=== PATIENT | female | born 1960 | race Caucasian/White ===

== ENCOUNTER 2018-07-06 21:42 | Emergency (ER) | payer OTHER ==
[2018-07-06 22:19] VITALS: BP 139/68
--- NOTE | 2018-07-06 22:29 | RADIOLOGY REPORT (SQ) ---
3 VIEWS OF THE LEFT FOOT AND ANKLE HISTORY: Foot pain. COMPARISON: None. FINDINGS/IMPRESSION: Nondisplaced fracture of the fifth metatarsal base. Mild surrounding soft tissue swelling is seen. No dislocation. Generalized osteopenia is present.
[2018-07-06] MEDS ORDERED: IBUPROFEN 600 MG TABLET PO ONE (23:33)
--- NOTE | 2018-07-06 23:54 | ER Document Report ---
HPI - HPI Pain Level: 2 Notes: Patient is a 57-year-old female who presents with chief complaint of left foot pain after she tripped just prior to arrival. Patient reports the pain is located over the dorsal surface of her foot medially. - CONSTITUTIONAL Constitutional: DENIES: Fever, Chills Past Medical History - General Information source: Patient - Social History Smoking Status: Never Smoker Frequency of alcohol use: None Drug Abuse: None Family History: Reviewed & Not Pertinent Patient has suicidal ideation: No Patient has homicidal ideation: No - Past Medical History Cardiac Medical History: Denies: Hx Coronary Artery Disease, Hx Heart Attack, Hx Hypertension Pulmonary Medical History: Reports: Hx COPD Denies: Hx Asthma, Hx Bronchitis, Hx Pneumonia Neurological Medical History: Denies: Hx Cerebrovascular Accident, Hx Seizures Renal/ Medical History: Denies: Hx Peritoneal Dialysis GI Medical History: Reports: Hx Gastroesophageal Reflux Disease Musculoskeletal Medical History: Denies Hx Arthritis Past Surgical History: Reports: Hx Cholecystectomy. Denies: Hx Hysterectomy - Immunizations Hx Diphtheria, Pertussis, Tetanus Vaccination: Yes Vertical Provider Document - CONSTITUTIONAL Notes: PHYSICAL EXAMINATION: GENERAL: Well-appearing, well-nourished and in no acute distress. HEAD: Atraumatic, normocephalic. EYES: Pupils equal round extraocular movements intact, conjunctiva are normal. ENT: Nares patent NECK: Normal range of motion LUNGS: No respiratory distress Musculoskeletal: Normal range of motion, tenderness to palpation over fifth metatarsal on the left foot cap refill less than 3 seconds, normal motor and sensation distal to injury. Mild swelling and ecchymosis noted. NEUROLOGICAL: Normal speech, normal gait. PSYCH: Normal mood, normal affect. SKIN: Warm, Dry, normal turgor, no rashes or lesions noted. - INFECTION CONTROL TRAVEL OUTSIDE OF THE [place] IN LAST 30 DAYS: No Course - Re-evaluation Re-evalutation: Patient with nondisplaced fifth metatarsal fracture of the left foot. Patient will be placed in a splint, given crutches, directions on icing and elevating. Patient to take ibuprofen for pain. Will follow up with orthopedics. - Vital Signs Vital signs: Temp Pulse Resp BP Pulse Ox 98.7 F 74 22 H 139/68 H 94 07/06/18 22:15 07/06/18 22:15 07/06/18 22:15 07/06/18 22:15 07/06/18 22:15 Procedures - Immobilization Left foot Pre-Proc Neuro Vasc Exam: Normal Immobilizer type: Crutches, Posterior ankle Performed by: PCT Post-Proc Neuro Vasc Exam: Normal Alignment checked and good: Yes Discharge - Discharge Clinical Impression: Metatarsal bone fracture Qualifiers: Encounter type: initial encounter Metatarsal bone: fifth Fracture type: closed Fracture alignment: nondisplaced Laterality: left Qualified Code(s): S92.355A - Nondisplaced fracture of fifth metatarsal bone, left foot, initial encounter for closed fracture Condition: Stable Disposition: HOME, SELF-CARE Additional Instructions: Fracture You have a fracture. The typical broken bone requires only protection and sufficient time for healing. "Setting" is necessary only if the bones are crooked or out of position. The physician will re-assess you periodically to make certain that the bone heals without complications. It's important that you follow the instructions given you. The initial treatment is immobilization, elevation of the injury, and cold packs. Not all fractures require a cast. Depending on the location and type of fracture, immobilization may consist of a splint, cast, sling, bulky dressing , or simply rest. The length of time required for healing depends on the location and type of fracture, and on the age of the patient. The treatment plan the physician has outlined for you is customized to your fracture and health condition. Call the doctor or return at once if pain becomes severe, or if severe swelling or numbness develop. Ice & Elevation Apply ice packs frequently against the painful area. Many different schedules are recommended, such as "20 minutes on, 20 minutes off" or "one hour ice, two hours rest." If you need to work, you may need to go longer between ice treatments. You should plan to have the area ice packed AT LEAST one- fourth of the time. The ice should be applied over the wrap, tape, or splint, or over a layer of cloth -- not directly against the skin. Some ice bags have a built-in cloth and can be put directly on the skin. Your injured part should be elevated as much as possible over the next 48 hours. Try to keep the injury above the level of the heart. Avoid use of the injured area. Elevation and rest will decrease the swelling. Ibuprofen Ibuprofen is an excellent, safe drug for pain control. In addition, it has potent antiinflammatory effects which are beneficial, especially in the treatment of injuries, arthritis, or tendonitis. It's best to take ibuprofen with food. Persons with ulcer disease or allergy to aspirin should notify their physician of this before taking ibuprofen. Take the medication exactly as prescribed. Don't take additional doses unless instructed to do so by your doctor. If you develop wheezing, shortness of breath, hives, faintness, stomach pain, vomiting, or dark black stools, return for re-evaluation at once. Please keep the splint in place until seen by orthopedics. Use the crutches to aid in mobility. Take ibuprofen 600 mg every 6 hours for pain. Ice and elevate the extremity as outlined above. Referrals: KATHY MEDELLIN MD [ACTIVE STAFF] - Follow up as needed
== END 2018-07-07 00:31 | disposition home or self-care (01) ==
LOC: ER 21:42
DX: S92.355A Nondisplaced fracture of fifth metatarsal bone, left foot, initial encounter for closed fracture (principal); W19.XXXA Unspecified fall, initial encounter; M79.672 Pain in left foot; J44.9 Chronic obstructive pulmonary disease, unspecified
CPT/HCPCS: 99283

== ENCOUNTER 2018-09-22 22:13 | Emergency (ER) | payer OTHER ==
[2018-09-23] MEDS ORDERED: IBUPROFEN 600 MG TABLET PO ONE (00:16)
[2018-09-23] MEDS ORDERED: OXYCODONE-ACETAMINOPHEN 5-325 MG TABLET PO ONE (00:16)
--- NOTE | 2018-09-23 00:18 | ER Document Report ---
ED General - General Chief Complaint: FALL Stated Complaint: FALL/LEG PAIN Time Seen by Provider: 09/23/18 00:12 Notes: 57-year-old female with no medical problems presents to the emergency department after a mechanical fall that occurred at work. She said she was turning and her knee caught a pole which threw her off balance and caused her to land on her left side. She is currently complaining of left hip femoral knee and ankle pain she denies hitting her head she denies loss of consciousness. She denies chest pain or palpitations. She endorses swelling and pain on the left knee. TRAVEL OUTSIDE OF THE [place] IN LAST 30 DAYS: No - Related Data Allergies/Adverse Reactions: Penicillins Adverse Reaction (Intermediate, Verified 07/06/18 21:46) mouth breaks out Past Medical History - General Information source: Patient - Social History Smoking Status: Current Every Day Smoker Family History: Reviewed & Not Pertinent - Past Medical History Cardiac Medical History: Denies: Hx Coronary Artery Disease, Hx Heart Attack, Hx Hypertension Pulmonary Medical History: Reports: Hx COPD Denies: Hx Asthma, Hx Bronchitis, Hx Pneumonia Neurological Medical History: Denies: Hx Cerebrovascular Accident, Hx Seizures Renal/ Medical History: Denies: Hx Peritoneal Dialysis GI Medical History: Reports: Hx Gastroesophageal Reflux Disease Musculoskeletal Medical History: Denies Hx Arthritis Past Surgical History: Reports: Hx Cholecystectomy. Denies: Hx Hysterectomy - Immunizations Hx Diphtheria, Pertussis, Tetanus Vaccination: Yes Review of Systems - Review of Systems Constitutional: No symptoms reported EENT: No symptoms reported Cardiovascular: See HPI Respiratory: No symptoms reported Gastrointestinal: No symptoms reported Genitourinary: No symptoms reported Female Genitourinary: No symptoms reported Musculoskeletal: See HPI Skin: No symptoms reported Hematologic/Lymphatic: No symptoms reported Neurological/Psychological: No symptoms reported Physical Exam - Vital signs Vitals: Temp Pulse Resp BP Pulse Ox 99.0 F 76 15 156/86 H 95 09/22/18 22:40 09/22/18 22:40 09/22/18 22:40 09/22/18 22:40 09/22/18 22:40 - Notes Notes: Reviewed vital signs and nursing note as charted by RN. CONSTITUTIONAL: Well-appearing, well-nourished, acting appropriately for age HEAD: Normocephalic, atraumatic, no swelling EYES: PERRL, Conjunctivae clear, no drainage, EOMI, no scleral icterus ENT: External ears without lesions, External auditory canal is patent, TMs without erythema, landmarks clear and well visualized, no rhinorrhea, Pharynx without erythema or lesions, no tonsillar hypertrophy, airway patent, mucous membranes pink and moist NECK: Supple, no cervical lymphadenopathy, no masses CARD: Regular rate and rhythm, no murmurs, no rubs, no gallops, capillary refill < 2 seconds, symmetric pulses RESP: The lungs are clear to auscultation bilaterally, no wheezing, no rales, no rhonchi. Respiratory rate and effort are normal, normal chest excursion. No respiratory distress, no retractions, no stridor, no nasal flaring, no accessory muscle use. ABD/GI: Normal bowel sounds, non-distended, soft, non-tender, no rebound, no guarding, no palpable organomegaly EXT: Limited range of motion left lower extremity, able to dangle patient over edge of bed and produce knee flexion. Effusion noted over lateral aspect of patella with moderate edema. Knee joint is warm. Tenderness to palpation over anterior talofibular ligament of left ankle. Tenderness to palpation left mid thigh. SKIN: Normal color for age and race, warm, dry, good turgor, no acute lesions noted NEURO: No facial asymmetry, moves all extremities equally, motor and sensory function intact Course - Re-evaluation Re-evalutation: 09/23/18 00:18 57-year-old female presents to the emergency department after mechanical fall she is in acute pain and has limited range of motion on her left side. Effusion is noted in the left knee with significant edema. Plan is for her left hip, knee, ankle x-ray with pain control. 09/23/18 01:21 All x-rays were negative for fractures. Therefore, she most likely sustained so ft tissue injury and may have a mild effusion. Plan is for immobilization with an Mikal wrap and anti-inflammatory treatment will give her a consult to see orthopedics. Patient is safe and stable for discharge. - Vital Signs Vital signs: Temp Pulse Resp BP Pulse Ox 99.0 F 76 15 156/86 H 95 09/22/18 22:40 09/22/18 22:40 09/22/18 22:40 09/22/18 22:40 09/22/18 22:40 Discharge - Discharge Clinical Impression: Knee injury Qualifiers: Encounter type: initial encounter Laterality: left Qualified Code(s): S89.92XA - Unspecified injury of left lower leg, initial encounter Condition: Stable Disposition: HOME, SELF-CARE Additional Instructions: You were seen in the emergency department this evening for a fall. All your x- rays were negative for any type of broken bones. You can employ rice therapy. Rest, ice, compression, elevation. It is okay to take the Mikal wrap off when you are going to shower or if it is too tight. Please take Motrin 600 mg every 6 hours for anti-inflammatory effects. You can also take Tylenol for pain control. If you develop worsening severe pain, your leg becomes red and hot or, conversely, turns blue, please immediately return to the emergency department. We have given you contact information for Dr. Nails who is the on-call orthopedic surgeon please follow-up with him on Monday. Referrals: LENORA CANO DO [NO LOCAL MD] - Follow up as needed DIONE MORALES DO [ACTIVE STAFF] - Follow up as needed
--- NOTE | 2018-09-23 01:05 | RADIOLOGY REPORT (SQ) ---
EXAM DESCRIPTION: XR HIP 2 OR MORE VIEWS COMPLETED DATE/TME: 09/23/2018 00:14 CLINICAL HISTORY: 57 years, Female, mechanical fall COMPARISON: None. NUMBER OF VIEWS: 2 TECHNIQUE: AP pelvis and single view left hip LIMITATIONS: None. FINDINGS: Osteopenia. Negative for acute fracture or dislocation. Mild degenerative change of the left hip. Soft tissues are unremarkable IMPRESSION: Osteopenia with mild degenerative change copyright 2010 [employer]- All Rights Reserved
--- NOTE | 2018-09-23 01:06 | RADIOLOGY REPORT (SQ) ---
EXAM DESCRIPTION: XR ANKLE 3 OR MORE VIEWS COMPLETED DATE/TME: 09/23/2018 00:14 CLINICAL HISTORY: 57 years, Female, mechanical fall COMPARISON: None. NUMBER OF VIEWS: 3 TECHNIQUE: 3 views left ankle LIMITATIONS: None. FINDINGS: Osteopenia. Negative for acute fracture or dislocation. Ankle mortise is intact. IMPRESSION: Osteopenia with no acute osseous abnormality copyright 2010 [employer]- All Rights Reserved
--- NOTE | 2018-09-23 01:08 | RADIOLOGY REPORT (SQ) ---
EXAM DESCRIPTION: XR KNEE 4 OR MORE VIEWS COMPLETED DATE/TME: 09/23/2018 00:14 CLINICAL HISTORY: 57 years, Female, mechanical fall COMPARISON: None. NUMBER OF VIEWS: 4 TECHNIQUE: 4 views of the left knee LIMITATIONS: None. FINDINGS: Osteopenia. Negative for acute fracture or dislocation. Mild medial and patellofemoral compartment degenerative change. IMPRESSION: Osteopenia with mild degenerative change. copyright 2010 [employer]- All Rights Reserved
[2018-09-23 03:17] VITALS: BP 150/75
== END 2018-09-23 02:50 | disposition home or self-care (01) ==
LOC: ER 22:13
DX: S89.92XA Unspecified injury of left lower leg, initial encounter (principal); M25.552 Pain in left hip; M25.562 Pain in left knee; M25.572 Pain in left ankle and joints of left foot; W19.XXXA Unspecified fall, initial encounter; Y99.0 Civilian activity done for income or pay
CPT/HCPCS: 99283